=== PATIENT | female | born 1995 | race Caucasian/White ===

== ENCOUNTER 2021-02-17 04:49 | Emergency (ER) | payer SELFPAY ==
[2021-02-17 05:52] LABS: BUN/CREATININE RATIO 14 (0-10)
[2021-02-17 06:04] LABS: HEMOGLOBIN 13.9 gm/dl (12.3-15.3); RED BLOOD COUNT 4.94 M/UL (4.00-5.10)
== END 2021-02-17 07:38 | disposition left against medical advice (07) ==
LOC: ER1 04:49
PROVIDERS: Physician Assistant
DX: R07.9 Chest pain, unspecified (principal); R06.00 Dyspnea, unspecified; E11.9 Type 2 diabetes mellitus without complications; J45.909 Unspecified asthma, uncomplicated; Z88.0 Allergy status to penicillin; Z88.1 Allergy status to other antibiotic agents; Z88.8 Allergy status to other drugs, medicaments and biological substances
CPT/HCPCS: 0240U; 71045; 80053; 81001; 82550; 82553; 83874; 83880; 84484; 85025; 87086; 93005; 99285